=== PATIENT | male | born 1935 | race Caucasian/White ===

== ENCOUNTER 2018-08-22 21:11 | Emergency (ER) | payer MEDICARE, BC ==
[2018-08-22] MEDS ORDERED: SODIUM CHLORIDE 0.9% 1,000ML IVBOLUS ONE (22:00)
[2018-08-22 22:05] LABS: PH, VENOUS 7.363 pH (7.320-7.420)
[2018-08-22 22:06] LABS: BASOPHILS # (AUTO) 0.03 x10^3/uL (0-0.1); BASOPHILS % (AUTO) 1 % (0-1); EOSINOPHILS # (AUTO) 0.08 x10^3/uL (0-0.4); EOSINOPHILS % (AUTO) 1 % (1-7); LYMPHOCYTES # (AUTO) 1.38 x10^3/uL (1-3.4); LYMPHOCYTES % (AUTO) 22 % (22-44); MD NO; MEAN CORPUSCULAR HGB CONC 33.2 g/dL (33.2-36.2); MEAN CORPUSCULAR VOLUME 93.4 fL (81-97); MEAN PLATELET VOLUME 9.9 fL (7.4-10.4); MONOCYTES # (AUTO) 0.41 x10^3/uL (0.2-0.8); MONOCYTES % (AUTO) 7 % (2-9); NEUTROPHILS # (AUTO) 4.46 x10^3/uL (1.8-6.8); NEUTROPHILS % (AUTO) 70 % (42-75); PLATELET COUNT 159 x10^3/uL (130-400); RED BLOOD COUNT 4.47 x10^6/uL (4.38-5.82); RED CELL DISTRIBUTION WIDTH 14.2 % (9.4-14.8)
[2018-08-22 22:17] LABS: ALANINE AMINOTRANSFERASE 24 U/L (12-78); ANION GAP 11 mmol/L (5-15); CALCIUM 8.5 mg/dL (8.5-10.1); CHLORIDE 104 mmol/L (98-107); CREATININE 1.15 mg/dL (0.7-1.3)
[2018-08-22 22:20] LABS: ALKALINE PHOSPHATASE 122 U/L (45-117); BILIRUBIN,TOTAL 0.6 mg/dL (0.2-1.0); TOTAL PROTEIN 6.7 g/dL (6.4-8.2)
[2018-08-22] MEDS ORDERED: INSULIN REGULAR 100 UNITS/ML, 3ML VIAL SQ-INSULIN SCH (22:30)
[2018-08-22 22:34] LABS: MICROSCOPIC NOT IND
[2018-08-22 22:38] LABS: ACETONE, SERUM Moderate(40mg/dL) mg/dL (Negative)
[2018-08-22] MEDS ORDERED: INSULIN REGULAR 100 UNITS/ML, 3ML VIAL ONE (22:40)
[2018-08-22 22:50] LABS: CULTURE INDICATED? NO
[2018-08-22 23:01] LABS: TROPONIN I < 0.015 ng/mL (0.000-0.045)
[2018-08-22 23:38] VITALS: BP 160/61
== END 2018-08-23 00:22 | disposition home or self-care (01) ==
LOC: ED 23:59
DX: E11.65 Type 2 diabetes mellitus with hyperglycemia (principal); E78.5 Hyperlipidemia, unspecified; G20 Parkinson's disease; G30.9 Alzheimer's disease, unspecified; Z87.891 Personal history of nicotine dependence; Z95.1 Presence of aortocoronary bypass graft
CPT/HCPCS: 36415; 71045; 80053; 81003; 82010; 82803; 82962; 84484; 85025; 93005; 96360; 96372; 99285; J7030